=== PATIENT | female | born 1965 | race Caucasian/White ===

== ENCOUNTER 2017-11-14 14:17 | Outpatient (CLI) | payer OTHER ==
--- NOTE | 2017-11-14 16:38 | MRI ---
RIGHT SHOULDER MRI WITHOUT IV CONTRAST: 11/14/17 HISTORY: 52-year-old female with history of internal derangement right shoulder, felt a pop while getting into a bus with pain and tingling since. Multiplanar, multisequence MRI examination of the right shoulder is performed. AC joint arthrosis lizzy nges are noted with some fluid within the subacrominal and subdeltoid bursa. High grade partial thick ness tear of the anterior supraspinatus tendon with prominent bursal sided component and an undersurf jaquelin component as well with probable full thickness nonretracted with some associated minimal delamina tion of the conjoined tendon region. Partial thickness undersurface insertional tear of the infraspin atus tendon with associated subchondral cyst. Overall exam quality is somewhat less than optimal dxaa use of large body habitus and low signal to noise ratio. Thickening and increased signal of subscapul chepe tendon, evidence for some tendinopathy as well as tendinopathy of the intra-articular portion of the biceps tendon. Supraspinatus muscle demonstrates mild to moderate muscle volume loss. The labrum is somewhat poorly defined and has some minimal increased signal associated with it probably related to some degenerative change. IMPRESSION: Somewhat technically limited study because of body habitus and low signal to noise ratio. AC joint ar throsis with some undersurface spurring of the distal clavicle and some subchondral cystic changes wi th minimal fluid in the subacromial and subdeltoid bursa. High grade partial thickness and probably s mall punctate full thickness tear of the supraspinatus tendon without significant retraction with pineda e minimal associated delamination. Low grade partial thickness undersurface tear of the infraspinatus tendon. Subscapularis and biceps tendinopathy. Slight blunting of the superior labrum, evidence for degeneration or small degenerative tear. POS: [facility]
== END 2017-11-14 14:18 | disposition home or self-care (01) ==
LOC: SCSMRI 14:17
PROVIDERS: ATTEND Family Medicine
DX: M24.811 Other specific joint derangements of right shoulder, not elsewhere classified (principal); M75.111 Incomplete rotator cuff tear or rupture of right shoulder, not specified as traumatic; M19.011 Primary osteoarthritis, right shoulder; M75.81 Other shoulder lesions, right shoulder; M67.813 Other specified disorders of tendon, right shoulder

== ENCOUNTER 2018-03-18 09:23 | Outpatient (CLI) | payer OTHER ==
[2018-03-18 10:48] LABS: Hemoglobin 15.2 g/dL (12.0-16.0); Mean Corpuscular HGB CONC 34.9 g/dL (32.0-36.0); Mean Corpuscular Hemoglobin 33.4 pg (27.0-31.0); Mean Corpuscular Volume 95.7 fL (78.0-98.0); Mean Platelet Volume 9.5 fL (7.4-10.4); Platelet Count 228 thou/uL (130-400); RBC Distribution Width 11.1 % (11.5-14.5); Red Blood Cell (RBC) Count 4.56 mill/uL (4.20-5.40); White Blood Cell (WBC) Count 8.7 thou/uL (4.8-10.8)
--- NOTE | 2018-03-18 22:06 | EKG ---
Test Reason : Blood Pressure : / mmHG Vent. Rate : 066 BPM Atrial Rate : 066 BPM P-R Int : 134 ms QRS Dur : 078 ms QT Int : 412 ms P-R-T Axes : 040 041 046 degrees QTc Int : 431 ms Normal sinus rhythm Cannot rule out Anterior infarct , age undetermined Abnormal ECG No previous ECGs available Confirmed by Jared GARCIA ([id number]) on 03/18/2018 10:06:38 PM Referred By: SHAYY Confirmed By:Jared GARCIA
== END 2018-03-18 09:24 | disposition home or self-care (01) ==
LOC: LABBT 09:23
PROVIDERS: ATTEND Orthopaedic Surgery
DX: Z01.818 Encounter for other preprocedural examination (principal); M75.121 Complete rotator cuff tear or rupture of right shoulder, not specified as traumatic
CPT/HCPCS: 85027; 93005; 93010

== ENCOUNTER 2018-03-19 06:02 | Day surgery (SDC) | payer OTHER ==
[2018-03-19] MEDS ORDERED: Bupivacaine/Epinephrine 0.25% 30 ML VIAL ONE (06:38)
[2018-03-19] MEDS ORDERED: Clindamycin/D5W 900 mg/50 ml Premix Bag ONE (07:50)
[2018-03-19] MEDS ORDERED: Fentanyl 100 MCG/2 ML VIAL ONE ×2 (08:11→10:20)
[2018-03-19] MEDS ORDERED: Midazolam HCl 2 mg/2 ml Vial ONE (08:11)
[2018-03-19] MEDS ORDERED: Lidocaine 1% (PF) 30 ML VIAL ONE (08:18)
[2018-03-19] MEDS ORDERED: Lidocaine 1% w/Epinephrine 1:100K 30 ML VIAL ONE (08:21)
[2018-03-19] MEDS ORDERED: Zolpidem Tartrate 5 MG TAB PO PRN (09:23)
[2018-03-19] MEDS ORDERED: HYDROcodone/Acetaminophen 10/325 mg Tablet PO PRN ×2 (09:23)
[2018-03-19] MEDS ORDERED: Ketorolac Tromethamine 30 MG/ML VIAL IVP PRN (09:23)
[2018-03-19] MEDS ORDERED: Ropivacaine 0.2% 550 ML 550 ML NERVE BLCK SCH (09:23)
[2018-03-19] MEDS ORDERED: traMADol HCl 50 MG TAB PO PRN ×2 (09:23)
[2018-03-19] MEDS ORDERED: Promethazine HCl 25 MG/ML VIAL IM PRN (09:23)
[2018-03-19] MEDS ORDERED: Ondansetron PF 4 MG/2 ML Vial IVP PRN (09:23)
[2018-03-19] MEDS ORDERED: Fentanyl 100 MCG/2 ML VIAL SLOW IVP PRN (09:24)
[2018-03-19] MEDS ORDERED: Bupivacaine HCl 0.5%/Epinephrine 1:200,000/PF 30 ml Vial ONE (11:23)
[2018-03-19] MEDS ORDERED: Ropivacaine 0.5% HCl/PF (150 MG/30 ML VIAL) ONE (11:23)
[2018-03-19] MEDS ORDERED: Ropivacaine 0.2% HCl/PF (40 MG/20 ML VIAL) ONE (11:23)
[2018-03-19] MEDS ORDERED: Ondansetron PF 4 MG/2 ML Vial ONE (12:05)
[2018-03-19] MEDS ORDERED: PROPOFOL 200 MG/20 ML VIAL ONE (12:05)
[2018-03-19] MEDS ORDERED: Glycopyrrolate 0.2 MG/ML 5 ML SYRINGE ONE (12:05)
[2018-03-19] MEDS ORDERED: Dexamethasone 20 MG/5 ML VIAL ONE (12:05)
[2018-03-19] MEDS ORDERED: Lidocaine 1% PF 5 ML VIAL ONE (12:05)
--- NOTE | 2018-03-19 16:18 | HP ---
HISTORY OF PRESENT ILLNESS: Ms. Stewart is a 52-year-old female presented after an injury on 10/2017, she was transferred to heard an acute pop. Pain can be severe at times. Pain relieved from an injection. She has undergone some home therapy with failure. She continues to have pain despite conservative measures. PAST MEDICAL HISTORY: Includes; 1. Hypertension. 2. Chronic pain. PAST SURGICAL HISTORY: 1. Tubal. 2. Adenoid. 3. . MEDICATIONS: Include; 1. . 2. Biotin. 3. Wellbutrin. 4. Furosemide. 5. Hydrochlorothiazide. 6. Magnesium. 7. Tizanidine. ALLERGIES: PENICILLIN G, IBUPROFEN. SOCIAL HISTORY: Smoker, occasional alcohol use. REVIEW OF SYSTEMS: Noncontributory. PHYSICAL EXAMINATION: VITAL SIGNS: Afebrile. Vital signs are stable. GENERAL: Alert and oriented female, in no acute distress, resting comfortably in bed. EXTREMITIES: Pain with overhead elevation of 150, external rotation 40, supination, strength 4/5. She has tenderness across the humerus subacromially. The patient has positive Haque, positive Patricia's. Neurovascularly intact. 2+ radial pulse in the incisions. DIAGNOSTIC DATA: MRI showed biceps tendinosis, high grade near full-thickness, supraspinatus. ASSESSMENT AND PLAN: The patient understands the risks and benefits of a right arthroscopic rotator cuff tear with biceps tendinosis and impingement. The patient will be taken to the operating room for a right arthroscopic rotator cuff repair with possible biceps tenodesis and subacromial decompression. I discussed with the patient the risks and benefits of surgery including infection, bleeding, pain, scar, damage to vital structures, decreased range of motion and strength, damage to nerve, artery, tendon, or cartilage, deformity. The patient understands the risks and benefits and likes to proceed. Time-out was performed. Identified the patient's operative side as the right upper extremity. Job ID: [id number]
--- NOTE | 2018-03-20 15:32 | OP ---
DATE OF PROCEDURE: 03/19/2018 PREOPERATIVE DIAGNOSIS: Right full-thickness rotator cuff tear with impingement. POSTOPERATIVE DIAGNOSIS: Right full-thickness rotator cuff tear with impingement. PROCEDURES PERFORMED: 1. Right rotator cuff tear repair. 2. Subacromial decompression. ATTENDING RADIOLOGIST: None. ANESTHESIOLOGIST: Ki Corey MD ANESTHESIA: The patient received general endotracheal intubation with interscalene block. ESTIMATED BLOOD LOSS: 30 mL. TOURNIQUET TIME: None. IMPLANTS: A 5.5 lateral FT corkscrew and a 4.75 SwiveLock. ANTIBIOTICS: Clindamycin 900. COMPLICATIONS: Articular perforation right at the footprint of the insertion of the capsule for the supraspinatus. INDICATIONS FOR PROCEDURE: Ms. Stewart is a 52-year-old female, who presented to me after a fall on 10/2017. The patient had pain. She had severe pain with her activities. The patient had a small pop with pain that led to restriction of activities. She had therapy, injections, and conservative management. The patient desired surgical intervention. I assessed the patient with MRI had full tear . I discussed the risks and benefits of right subacromial decompression with possible biceps tenodesis and rotator cuff repair. I discussed the risks and benefits of surgery including, pain, scar, bleeding, infection, damage to vital structures, decreased range of motion and strength, continued pain despite surgical intervention, damage to vital structures, nerves, arteries, tendons, bone cartilage, failure of implants, failure of repair, loss of life or limb. The patient understood the risks and benefits and elected to proceed. DESCRIPTION OF PROCEDURE: Time-out was performed designating the patient's right upper extremity as the operative site, based on site, consent, and markings. Posterior working portal and anterior working portal were placed, visualized intra-articularly. There was degenerative labral tear that was noted, which was debrided. The patient had a biceps tendon, which was intact throughout its course. There was no full-thickness tearing or high-grade tearing. Subscapularis was intact. There were no glenoid defects and the humerus were glenoid and no loose bodies. Then, we then moved subacromially, debrided significant bursa to down the patient's small hook and burred the subacromial space, cleaned the entire bursa to expose, so a full-thickness rotator cuff on exposure. I placed a lateral working portal and repositioned my anterior working portal for this. I then placed one more stab incision at the anterolateral acromion to place my anchor. I placed a single anchor and when my anchor passed into positioned. It seemed horizontal, as it started to pass and tie the knots, I concerned that maybe after looking at the trajectory that it might have perforated the articular surface. I went back and saw just about 2 mm at the tip had punctured through the articular margin right at the insertion of the patient's supraspinatus, therefore I cut the knots, removed it completely. I went back, placed a second anchor and then two horizontal mattress sutures were passed, tied the knots and did a lateral roll with 4.75 SwiveLock. I went back afterwards and looked at the patient's articular puncture, which was a linear articular puncture that was right off the insertion of the capsule and measuring about 5 mm. I tried to impact down the cartilages to help with its position. I then washed and completed my procedure, placed 3-0 nylon horizontal mattress suture. The patient will be elbow, wrist, and hand motion. Will follow me in 2 weeks to being passive range of motion. Job ID: [id number]
== END 2018-03-19 13:50 | disposition home or self-care (01) ==
LOC: SDC 06:02
PROVIDERS: ATTEND Orthopaedic Surgery
DX: S46.011A Strain of muscle(s) and tendon(s) of the rotator cuff of right shoulder, initial encounter (principal); M25.811 Other specified joint disorders, right shoulder; I10 Essential (primary) hypertension; F17.200 Nicotine dependence, unspecified, uncomplicated; Z79.899 Other long term (current) drug therapy; Z88.0 Allergy status to penicillin; W19.XXXA Unspecified fall, initial encounter
CPT/HCPCS: A4306; C1713; J0670; J1100; J2001; J2250; J2405; J2704; J2795; J3010; J3490